=== PATIENT | male | born 1975 | race Caucasian/White ===

== ENCOUNTER 2017-01-05 19:57 | Emergency (ER) | payer BC ==
[~2017-01-05 19:57] MED LIST: [UNRECOGNIZED DRUG - OTHER] PO
== END 2017-01-05 20:46 | disposition home or self-care (01) ==
LOC: ER 19:57
PROC: 0W960ZZ Drainage of Neck, Open Approach (ICD-10-PCS; principal; 2017-01-05)
PROC: 0W9K0ZZ Drainage of Upper Back, Open Approach (ICD-10-PCS; 2017-01-05)
DX: L02.11 Cutaneous abscess of neck (principal); L02.212 Cutaneous abscess of back [any part, except buttock and flank]; I10 Essential (primary) hypertension; F17.200 Nicotine dependence, unspecified, uncomplicated
CPT/HCPCS: 99283; A9270-GY